=== PATIENT | female | born 1980 | race Caucasian/White ===

== ENCOUNTER 2018-09-14 15:39 | Emergency (ER) | payer BC, MEDICAID ==
[2018-09-14 15:47] VITALS: O2SAT 98
--- NOTE | 2018-09-14 15:51 | ERPHSYRPT ---
- History of Present Illness Time Seen by Provider: 09/14/18 15:50 Source: patient Exam Limitations: no limitations Patient Subjective Stated Complaint: PT states "I was in the bathroom and I tripped over my daughters baby chair. I hit my right elbow and my left hand. I can barely move my left hand." Triage Nursing Assessment: Pt alert and oriented X 3, skin pwd Pt ambulates with an upright steady gait, able to speak in celar full sentences. Pt left hand slightly swollen, right elbow swollen. Physician History: 38 y/o right handed white female presents with left hand pain after fall. 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 pt also hit her right elbow but not as concerned about that. no head injury. Occurred: just prior to arrival Method of Injury: fell Quality: aching, throbbing Severity of Pain-Max: moderate Severity of Pain-Current: mild Extremities Pain Location: hand: left Modifying Factors: Improves With: movement (worsens) Associated Symptoms: none Allergies/Adverse Reactions: cefaclor [From Ceclor] Allergy (Verified 09/14/18 15:47) Hives shrimp Allergy (Verified 09/14/18 15:47) Swelling Home Medications: Metformin HCl [Glucophage Xr] 500 mg PO BID 09/14/18 [History] Sertraline HCl [Zoloft] 100 mg PO DAILY 09/14/18 [History] Hx Tetanus, Diphtheria Vaccination/Date Given: Yes Hx Influenza Vaccination/Date Given: No Hx Pneumococcal Vaccination/Date Given: No Immunizations Up to Date: Yes - Review of Systems Constitutional: No Symptoms Eyes: No Symptoms Ears, Nose, & Throat: No Symptoms Respiratory: No Symptoms Cardiac: No Symptoms Abdominal/Gastrointestinal: No Symptoms Genitourinary Symptoms: No Symptoms Musculoskeletal: Fall (right hand pain) Skin: No Symptoms Neurological: No Symptoms Psychological: No Symptoms Endocrine: No Symptoms Hematologic/Lymphatic: No Symptoms Immunological/Allergic: No Symptoms All Other Systems: Reviewed and Negative - Past Medical History Pertinent Past Medical History: Yes Neurological History: Migraines ENT History: No Pertinent History Cardiac History: No Pertinent History Respiratory History: Asthma, Bronchitis Endocrine Medical History: Diabetes Type II Musculoskeletal History: No Pertinent History GI Medical History: GERD History: No Pertinent History Psycho-Social History: Anxiety Female Reproductive Disorders: No Pertinent History - Past Surgical History Past Surgical History: Yes Other Surgical History: gums - Social History Smoking Status: Never smoker Exposure to second hand smoke: No Drug Use: none Patient Lives Alone: No - Female History Hx Last Menstrual Period: breast feeding Hx Now: No - Nursing Vital Signs Nursing Vital Signs: Initial Vital Signs Temperature 97.8 F 09/14/18 15:40 Pulse Rate 76 09/14/18 15:40 Respiratory Rate 16 09/14/18 15:40 Blood Pressure 140/82 09/14/18 15:40 O2 Sat by Pulse Oximetry 98 09/14/18 15:40 Pain Scale Pain Intensity 4 - Physical Exam General Appearance: no apparent distress, alert, anxiety Eyes, Ears, Nose, Throat Exam: normal ENT inspection, moist mucous membranes Neck Exam: normal inspection, non-tender, supple, full range of motion Cardiovascular/Respiratory Exam: chest non-tender, normal breath sounds, regular rate/rhythm, heart sounds normal Abdominal Exam: non-tender, soft Back Exam: normal inspection, normal range of motion, No CVA tenderness, No vertebral tenderness Shoulder Exam: normal inspection, non-tender Elbow/Forearm Exam: normal ROM, soft tissue tenderness, swelling (right elbow with mild swelling no deformity and has full rom) Wrist Exam: normal inspection, non-tender, no evidence of injury, normal ROM Hand Exam: normal inspection, no evidence of injury, normal ROM, bone tenderness (left thenar eminence), soft tissue tenderness Neuro/Tendon Exam: normal sensation, normal motor functions, normal tendon functions Mental Status Exam: alert, oriented x 3, cooperative Skin Exam: normal color, warm, dry SpO2 Interpretation: normal SpO2: 98 O2 Delivery: Room Air Ordered Tests: Active Orders 24 hr Category Date Time Status HAND (MINIMUM 3 VIEWS) Stat Exams 09/14/18 15:51 Taken - Progress Progress: unchanged Progress Note: 09/14/18 17:00 left hand xray-no acute fx or dislocation 09/14/18 17:00 pt is and she does not want any narcotics Counseled pt/family regarding: diagnosis, need for follow-up, rad results - Departure Departure Disposition: Home Clinical Impression: Contusion of hand, left Condition: Stable Critical Care Time: No Referrals: ENEDINA MARCOS [Primary Care Provider] - Additional Instructions: left hand ice bath 3 times daily for 3 days. use tylenol for pain. follow up with primary doctor for persistent pain.
[2018-09-14 18:01] VITALS: BP 136/84; PULSE 86
--- NOTE | 2018-09-14 21:41 | XRAY ---
Indication: Pain following fall. Comparison: None 3 views of the left hand demonstrate normal bones, articulation, and soft tissues. Comment: Preliminary interpretation was made by [facility]. No discrepancy.
== END 2018-09-14 18:08 | disposition home or self-care (01) ==
LOC: ED 15:39
DX: W01.198A Fall on same level from slipping, tripping and stumbling with subsequent striking against other object, initial encounter (principal); Y92.002 Bathroom of unspecified non-institutional (private) residence as the place of occurrence of the external cause; M79.642 Pain in left hand; M79.89 Other specified soft tissue disorders
CPT/HCPCS: 73130; 99283

== ENCOUNTER 2020-08-12 07:41 | Emergency (ER) | payer BC ==
--- NOTE | 2020-08-12 07:56 | ERPHSYRPT ---
- History of Present Illness Time Seen by Provider: 08/12/20 07:50 Source: patient Exam Limitations: no limitations Physician History: This is a 40-year-old white female who has a history of migraine headaches and presents with acute onset of atypical migraine headache that occurred this morning and has associated left-sided facial numbness. Patient has a history of [id number] diabetes. Patient denies any head trauma. Patient states that her headache is severe and global in location. Timing/Duration: today Quality: aching, throbbing Head Pain Location: global Severity of Pain-Max: moderate Severity of Pain-Current: moderate Recent Head Trauma: no recent headache/trauma, occasional headaches Associated Symptoms: nausea/vomiting, other (Left facial numbness), No fever/chills, No seizures, No stiff neck, No vision changes, No visual disturbance Previous symptoms: no prior history Allergies/Adverse Reactions: cefaclor [From Ceclor] Allergy (Verified 08/12/20 07:45) Hives shrimp Allergy (Verified 08/12/20 07:45) Swelling Home Medications: Metformin HCl [Glucophage Xr] 1,000 mg PO BID 09/14/18 [History] Sertraline HCl [Zoloft] 150 mg PO DAILY 09/14/18 [History] Hx Tetanus, Diphtheria Vaccination/Date Given: Yes Hx Influenza Vaccination/Date Given: No Hx Pneumococcal Vaccination/Date Given: No Travel Risk - International Travel Have you traveled outside of the country in past 3 weeks: No - Coronavirus Screening Are you exhibiting any of the following symptoms?: No Close contact with a COVID-19 positive Pt in past 14-21 Days: No - Review of Systems Constitutional: No Symptoms Eyes: No Symptoms Ears, Nose, & Throat: No Symptoms Respiratory: No Symptoms Cardiac: No Symptoms Abdominal/Gastrointestinal: No Symptoms Genitourinary Symptoms: No Symptoms Musculoskeletal: No Symptoms Skin: No Symptoms Neurological: Headache, Parasthesia (Face left side) Psychological: No Symptoms Endocrine: No Symptoms Hematologic/Lymphatic: No Symptoms Immunological/Allergic: No Symptoms All Other Systems: Reviewed and Negative - Past Medical History Pertinent Past Medical History: Yes Neurological History: Migraines ENT History: No Pertinent History Cardiac History: No Pertinent History Respiratory History: Asthma, Bronchitis Endocrine Medical History: Diabetes Type II Musculoskeletal History: No Pertinent History GI Medical History: GERD History: No Pertinent History Psycho-Social History: Anxiety Female Reproductive Disorders: No Pertinent History - Past Surgical History Past Surgical History: Yes Other Surgical History: gums - Social History Smoking Status: Never smoker Exposure to second hand smoke: No Drug Use: none Patient Lives Alone: No - Nursing Vital Signs Nursing Vital Signs: Initial Vital Signs Temperature 98.0 F 08/12/20 07:48 Pulse Rate 99 H 08/12/20 07:48 Respiratory Rate 18 08/12/20 07:48 Blood Pressure 180/114 08/12/20 07:48 O2 Sat by Pulse Oximetry 96 08/12/20 07:48 Pain Scale Pain Intensity 5 - Physical Exam General Appearance: mild distress, alert, anxiety Eye Exam: PERRL/EOMI, eyes nml inspection Ears, Nose, Throat Exam: normal ENT inspection, moist mucous membranes Neck Exam: normal inspection, non-tender, supple, full range of motion Respiratory Exam: normal breath sounds, lungs clear, airway intact, No chest tenderness, No respiratory distress Cardiovascular Exam: regular rate/rhythm, normal heart sounds, normal peripheral pulses Gastrointestinal/Abdominal Exam: soft, normal bowel sounds, No tenderness Back Exam: normal inspection, normal range of motion, No CVA tenderness, No vertebral tenderness Extremity Exam: normal inspection, normal range of motion, pelvis stable Mental Status Exam: alert, 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 3, 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: normal hearing, normal speech, PERRL, tongue midline Coordination/Gait Exam: normal finger to nose, normal gait, normal cerebellar function Motor/Sensory Exam: no motor deficit, no sensory deficit Skin Exam: normal color, warm, dry Lymphatic Exam: No adenopathy O2 Delivery: Room Air - Course Nursing assessment & vital signs reviewed: Yes Ordered Tests: Active Orders 24 hr Category Date Time Status IV Insertion STAT Care 08/12/20 07:56 Active HEAD WITHOUT CONTRAST [CT] Stat Exams 08/12/20 07:57 Completed Medication Summary Discontinued Medications Generic Name Dose Route Start Last Admin Trade Name Freq PRN Reason Stop Dose Admin Dexamethasone Sodium Phosphate 10 mg 08/12/20 09:10 08/12/20 09:24 Decadron 4 Mg Inj IV 08/12/20 09:11 10 mg STAT ONE Administration Dexamethasone Sodium Phosphate Confirm 08/12/20 09:22 Decadron 4 Mg Inj Administered 08/12/20 09:23 Dose 12 mg .ROUTE .STK-MED ONE Diphenhydramine HCl 25 mg 08/12/20 09:07 08/12/20 09:25 Benadryl 50 Mg/Ml IV 08/12/20 09:08 25 mg STAT ONE Administration Diphenhydramine HCl Confirm 08/12/20 09:22 Benadryl 50 Mg/Ml Administered 08/12/20 09:23 Dose 50 mg .ROUTE .STK-MED ONE Hydromorphone HCl 1 mg 08/12/20 07:57 08/12/20 08:02 Hydromorphone 1 Mg/Ml Injection IV 08/12/20 07:58 1 mg STAT ONE Administration Hydromorphone HCl Confirm 08/12/20 08:00 Hydromorphone 1 Mg/Ml Injection Administered 08/12/20 08:01 Dose 1 mg .ROUTE .STK-MED ONE Sodium Chloride 1,000 mls @ 999 mls/hr 08/12/20 09:07 08/12/20 09:24 Sodium Chloride 0.9% 1000 Ml IV 08/12/20 10:07 999 mls/hr .Q1H1M STA Administration Sodium Chloride Confirm 08/12/20 09:22 Sodium Chloride 0.9% 1000 Ml Administered 08/12/20 09:23 Dose 1,000 mls @ ud .ROUTE .STK-MED ONE Ketorolac Tromethamine 30 mg 08/12/20 09:07 08/12/20 09:24 Toradol 30 Mg Injection IV 08/12/20 09:08 30 mg STAT ONE Administration Ketorolac Tromethamine Confirm 08/12/20 09:22 Toradol 30 Mg Injection Administered 08/12/20 09:23 Dose 30 mg .ROUTE .STK-MED ONE Ondansetron HCl 4 mg 08/12/20 07:57 08/12/20 08:02 Zofran 4 Mg/2 Ml Vial IV 08/12/20 07:58 4 mg STAT ONE Administration Ondansetron HCl Confirm 08/12/20 08:00 Zofran 4 Mg/2 Ml Vial Administered 08/12/20 08:01 Dose 4 mg .ROUTE .STK-MED ONE - Progress Progress: improved, re-examined Air Movement: good Progress Note: 08/12/20 09:[address] scan of the head 08/12/20 10:23 Medical decision making: This patient was sleeping upon reexamination. Her vital signs have improved. Patient states her headache is resolving nicely. She has no facial numbness and she has no nausea. We will discharge her to home. Blood Culture(s) Obtained: No Antibiotics given: No Counseled pt/family regarding: diagnosis, need for follow-up, rad results - Departure Departure Disposition: Home Clinical Impression: Migraine headache Condition: Stable Critical Care Time: No Referrals: MARIELA BARTHOLOMEW [Primary Care Provider] - Additional Instructions: Drink plenty of fluids. Take your medication as prescribed. Follow-up with a neurologist for further management. Return to the emergency department if symptoms return.
[2020-08-12] MEDS ORDERED: Hydromorphone 1 mg/ml Injection IV ONE (07:57)
[2020-08-12] MEDS ORDERED: Zofran 4 MG/2 ML VIAL IV ONE (07:57)
[2020-08-12] MEDS ORDERED: Zofran 4 MG/2 ML VIAL ONE (08:00)
[2020-08-12] MEDS ORDERED: Hydromorphone 1 mg/ml Injection ONE (08:00)
--- NOTE | 2020-08-12 09:03 | XRAY ---
Indication: Headache. History of migraines. Multiple contiguous images obtained through the head without contrast. Comparison: None Normal appearing brain parenchyma, ventricles, and bony calvarium. Minimal mucosal thickening inferior maxillary sinuses bilaterally. Remaining visualized paranasal sinuses and mastoid air cells are clear. Impression: Minimal paranasal sinus disease. Remaining CT head without contrast exam is normal.
[2020-08-12] MEDS ORDERED: BENADRYL 50 MG/ML IV ONE (09:07)
[2020-08-12] MEDS ORDERED: Sodium Chloride 0.9% 1000 ML 1,000 ML IV STA (09:07)
[2020-08-12] MEDS ORDERED: TORAdol 30 mg Injection IV ONE (09:07)
[2020-08-12] MEDS ORDERED: Decadron 4 MG INJ IV ONE (09:10)
[2020-08-12] MEDS ORDERED: TORAdol 30 mg Injection ONE (09:22)
[2020-08-12] MEDS ORDERED: Decadron 4 MG INJ ONE (09:22)
[2020-08-12] MEDS ORDERED: BENADRYL 50 MG/ML ONE (09:22)
[2020-08-12] MEDS ORDERED: Sodium Chloride 0.9% 1000 ML 1,000 ML ONE (09:22)
[2020-08-12 10:36] VITALS: BP 158/98; PULSE 80; O2SAT 95
== END 2020-08-12 10:40 | disposition home or self-care (01) ==
LOC: ED 07:41
DX: G43.909 Migraine, unspecified, not intractable, without status migrainosus (principal); R11.2 Nausea with vomiting, unspecified; E11.9 Type 2 diabetes mellitus without complications; Z79.84 Long term (current) use of oral hypoglycemic drugs; Z79.899 Other long term (current) drug therapy
CPT/HCPCS: 36000; 70450; 96374; 96375; 99284; J1100; J1170; J1200; J1885; J2405

== ENCOUNTER 2020-08-26 17:24 | Observation (INO) | payer BC ==
[2020-08-26] MEDS ORDERED: BENADRYL 50 MG/ML IV ONE (17:48)
[2020-08-26] MEDS ORDERED: BABY ASPIRIN 81 MG CHEW PO ONE (17:48)
[2020-08-26] MEDS ORDERED: Sodium Chloride 0.9% 1000 ML 1,000 ML IV STA (17:48)
[2020-08-26] MEDS ORDERED: TORAdol 30 mg Injection IV ONE (17:50)
[2020-08-26] MEDS ORDERED: TYLENOL EXTRA STRENGTH 500 MG PO STA (17:51)
[2020-08-26] MEDS ORDERED: BABY ASPIRIN 81 MG CHEW ONE (18:04)
[2020-08-26] MEDS ORDERED: BENADRYL 50 MG/ML ONE (18:04)
[2020-08-26] MEDS ORDERED: TORAdol 30 mg Injection ONE (18:04)
[2020-08-26] MEDS ORDERED: TYLENOL EXTRA STRENGTH 500 MG ONE (18:04)
[2020-08-26] MEDS ORDERED: Sodium Chloride 0.9% 1000 ML 1,000 ML ONE (18:05)
[2020-08-26 18:26] LABS: Absolute Neutrophil Ct (ANC) 7.84 (1.4-6.9); BASOPHIL % 0.2 % (0.0-0.4); Basophil (Absolute #) 0.02 (0-0.4); Eosinophil % 1.2 % (0.00-5.0); Eosinophil (Absolute #) 0.12 (0-0.5); Hematocrit 39.9 % (35-47); Hemoglobin 12.9 gm/dl (12.0-16.0); Lymphocyte (Absolute #) 1.65 (1.0-4.6); Mean Cell Volume 88.1 fl (78-100); Mean Corpuscular Hemoglobin 28.5 pg (26-32); Mean Corpuscular Hgb Concent. 32.3 g/dl (32-36); Monocyte (Absolute #) 0.66 (0.0-1.3); Monocytes % 6.4 % (0.0-12.0); Neutrophil % 76.2 % (36.0-66.0); Platelet Count 263 K/mm3 (150-450); Red Blood Count 4.53 M/mm3 (4.1-5.4); Red Cell Distribution Width 14.4 % (11.5-14.0); White Blood Count 10.3 K/mm3 (4.0-10.5)
[2020-08-26 18:29] LABS: Appearance CLEAR (CLEAR); Bilirubin NEGATIVE (NEGATIVE); Blood NEGATIVE Ery/ul (0-5); Glucose >=500 mg/dL (NEGATIVE); Ketones TRACE (NEGATIVE); Leukocyte Esterase NEGATIVE (NEGATIVE); Mucus SLIGHT /HPF (NEGATIVE); Nitrite NEGATIVE (NEGATIVE); Protein,Urine Dip NEGATIVE (Negative); Specific Gravity 1.018 (1.005-1.025); Urobilinogen NEGATIVE mg/dL (0-1)
[2020-08-26 18:46] LABS: BLOOD UREA NITROGEN 16 mg/dL (7-17); Creatinine 1 0.75 mg/dL (0.52-1.04); EST GLOMERULAR FILTRATION RATE > 60.0 ML/MIN
--- NOTE | 2020-08-26 18:50 | ERPHSYRPT ---
- History of Present Illness Time Seen by Provider: 08/26/20 17:33 Source: patient Exam Limitations: no limitations Patient Subjective Stated Complaint: HTN Triage Nursing Assessment: Patient ambulated back to ED and transferred self to bed. Patient A+O X3. Patient's skin flushed, warm and dry. Patient states 1530 she became nauseated and had diarrhea and became very hot and she stated she felt "weird". Patient states her sister law took her b/p and it was 150/110. Patient states she is having constant aching pain 2/10 to left side of head. Patient states the left side of her body feels numb and weak. Physician History: Patient is here with left-sided headache. Patient was having some left-sided facial numbness and left arm numbness. She states that this started earlier today. Having some nausea with it. Patient also is hypertensive. This is new. Patient typically does not have hypertension. Patient states that she was seen here for similar symptoms a few weeks ago. At that point time she did have a negative head CT. I did review that provider's note. Location: head Quality: sharp, Radiation: none Severity: moderate Duration: today Timing: gradual Modifying factors/associated signs and symptoms: home OTC medication Timing/Duration: today Severity: moderate Modifying Factors: Improves With: rest Associated Symptoms: nausea Allergies/Adverse Reactions: cefaclor [From Ceclor] Allergy (Verified 08/26/20 17:30) Hives shrimp Allergy (Verified 08/26/20 17:30) Swelling Home Medications: Metformin HCl [Glucophage Xr] 1,000 mg PO BID 09/14/18 [History] Sertraline HCl [Zoloft] 150 mg PO DAILY 09/14/18 [History] Hx Tetanus, Diphtheria Vaccination/Date Given: Yes Hx Influenza Vaccination/Date Given: No Hx Pneumococcal Vaccination/Date Given: No Immunizations Up to Date: Yes Travel Risk - International Travel Have you traveled outside of the country in past 3 weeks: No - Coronavirus Screening Are you exhibiting any of the following symptoms?: No Close contact with a COVID-19 positive Pt in past 14-21 Days: No - Vaccine Status Have you recieved a Covid-19 vaccination: No - Review of Systems Constitutional: No Fever, No Chills Eyes: No Symptoms Ears, Nose, & Throat: No Symptoms Respiratory: No Cough, No Dyspnea Cardiac: No Chest Pain, No Edema, No Syncope Abdominal/Gastrointestinal: No Abdominal Pain, No Nausea, No Vomiting, No Diarrhea Genitourinary Symptoms: No Dysuria Musculoskeletal: No Back Pain, No Neck Pain Skin: No Rash Neurological: Sensory Changes, Other (Headache with left-sided numbness), No Dizziness, No Focal Weakness Psychological: No Symptoms Endocrine: No Symptoms All Other Systems: Reviewed and Negative - Past Medical History Pertinent Past Medical History: Yes Neurological History: Migraines ENT History: No Pertinent History Cardiac History: No Pertinent History Respiratory History: Asthma, Bronchitis Endocrine Medical History: Diabetes Type II Musculoskeletal History: No Pertinent History GI Medical History: GERD History: No Pertinent History Psycho-Social History: Anxiety Female Reproductive Disorders: No Pertinent History - Past Surgical History Past Surgical History: Yes Other Surgical History: gums - Social History Smoking Status: Never smoker Exposure to second hand smoke: No Drug Use: none Patient Lives Alone: No - Female History Hx Now: No - Nursing Vital Signs Nursing Vital Signs: Initial Vital Signs Temperature 97.9 F 08/26/20 17:32 Pulse Rate 107 H 08/26/20 17:32 Respiratory Rate 18 08/26/20 17:32 Blood Pressure 177/120 08/26/20 17:32 O2 Sat by Pulse Oximetry 100 08/26/20 17:32 Pain Scale Pain Intensity 2 - Physical Exam General Appearance: no apparent distress, alert Eye Exam: PERRL/EOMI, eyes nml inspection Ears, Nose, Throat Exam: normal ENT inspection, TMs normal, pharynx normal, moist mucous membranes Neck Exam: normal inspection, non-tender, supple, full range of motion Respiratory Exam: normal breath sounds, lungs clear, No respiratory distress Cardiovascular Exam: regular rate/rhythm, normal heart sounds, normal peripheral pulses Gastrointestinal/Abdomen Exam: soft, normal bowel sounds, No tenderness, No mass Back Exam: normal inspection, normal range of motion, No CVA tenderness, No vertebral tenderness Extremity Exam: normal inspection, normal range of motion, pelvis stable Neurologic Exam: alert, oriented x 3, cooperative, normal mood/affect, nml cerebellar function, nml station & gait, sensation nml, No motor deficits Skin Exam: normal color, warm, dry, No rash Lymphatic Exam: No adenopathy SpO2 Interpretation: normal SpO2: 100 - Course Nursing assessment & vital signs reviewed: Yes EKG Interpreted by Me: Sinus Rhythm Ordered Tests: Active Orders 24 hr Category Date Time 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 STAT Care 08/26/20 17:49 Active EKG-ER Only STAT Care 08/26/20 17:48 Active IV Insertion STAT Care 08/26/20 17:48 Active CHEST 2 VIEWS (PA AND LAT) Stat Exams 08/26/20 17:49 Taken CBC W DIFF Stat Lab 08/26/20 18:00 Completed CMP Stat Lab 08/26/20 18:00 Completed HCG QUALITATIVE,SERUM Stat Lab 08/26/20 18:00 Completed Hepatic Function Panel Stat Lab 08/26/20 18:00 Completed NT PRO BNP Stat Lab 08/26/20 18:00 Completed PROTIME WITH INR Stat Lab 08/26/20 18:00 Completed PTT Stat Lab 08/26/20 18:00 Completed TROPONIN Q3H Lab 08/26/20 18:00 Received TROPONIN Q3H Lab 08/26/20 21:00 Ordered TROPONIN Q3H Lab 08/27/20 00:00 Ordered TROPONIN Q3H Lab 08/27/20 03:00 Ordered TROPONIN Q3H Lab 08/27/20 06:00 Ordered UA W/RFX UR CULTURE Stat Lab 08/26/20 18:00 Completed Medication Summary Discontinued Medications Generic Name Dose Route Start Last Admin Trade Name Freq PRN Reason Stop Dose Admin Acetaminophen 1,000 mg 08/26/20 17:51 08/26/20 18:06 Tylenol Extra Strength 500 Mg PO 08/26/20 17:52 1,000 mg STAT STA Administration Acetaminophen Confirm 08/26/20 18:04 Tylenol Extra Strength 500 Mg Administered 08/26/20 18:05 Dose 1,000 mg .ROUTE .STK-MED ONE Aspirin 324 mg 08/26/20 17:48 08/26/20 18:07 Baby Aspirin 81 Mg Chew PO 08/26/20 17:49 324 mg STAT ONE Administration Aspirin Confirm 08/26/20 18:04 Baby Aspirin 81 Mg Chew Administered 08/26/20 18:05 Dose 324 mg .ROUTE .STK-MED ONE Diphenhydramine HCl 25 mg 08/26/20 17:48 08/26/20 18:11 Benadryl 50 Mg/Ml IV 08/26/20 17:49 25 mg STAT ONE Administration Diphenhydramine HCl Confirm 08/26/20 18:04 Benadryl 50 Mg/Ml Administered 08/26/20 18:05 Dose 50 mg .ROUTE .STK-MED ONE Sodium Chloride 1,000 mls @ 999 mls/hr 08/26/20 17:48 08/26/20 19:15 Sodium Chloride 0.9% 1000 Ml IV 08/26/20 18:48 Infused .Q1H1M STA Infusion Sodium Chloride Confirm 08/26/20 18:05 Sodium Chloride 0.9% 1000 Ml Administered 08/26/20 18:06 Dose 1,000 mls @ ud .ROUTE .STK-MED ONE Ketorolac Tromethamine 30 mg 08/26/20 17:50 08/26/20 18:09 Toradol 30 Mg Injection IV 08/26/20 17:51 30 mg STAT ONE Administration Ketorolac Tromethamine Confirm 08/26/20 18:04 Toradol 30 Mg Injection Administered 08/26/20 18:05 Dose 30 mg .ROUTE .STK-MED ONE Lab/Rad Data: Laboratory Result Diagrams 08/26/20 18:00 08/26/20 18:00 Laboratory Results 08/26/20 08/26/20 08/26/20 Range/Units 18:00 18:00 18:00 WBC (4.0-10.5) K/mm3 RBC (4.1-5.4) M/mm3 Hgb (12.0-16.0) gm/dl Hct (35-47) % MCV (78-100) fl MCH (26-32) pg MCHC (32-36) g/dl RDW (11.5-14.0) % Plt Count (150-450) K/mm3 MPV (7.5-11.0) fl Gran % (36.0-66.0) % Eos # (Auto) (0-0.5) Absolute Lymphs (auto) (1.0-4.6) Absolute Monos (auto) (0.0-1.3) Lymphocytes % (24.0-44.0) % Monocytes % (0.0-12.0) % Eosinophils % (0.00-5.0) % Basophils % (0.0-0.4) % Absolute Granulocytes (1.4-6.9) Basophils # (0-0.4) PT 11.5 (9.95-12.35) SECONDS INR 1.02 (0.8-3.0) APTT 29.6 (25.3-37.0) SECONDS Sodium (137-145) mmol/L Potassium (3.5-5.1) mmol/L Chloride (98-107) mmol/L Carbon Dioxide (22-30) mmol/L Anion Gap (5-15) MEQ/L BUN (7-17) mg/dL Creatinine (0.52-1.04) mg/dL Estimated GFR ML/MIN Glucose (74-106) mg/dL Calcium (8.4-10.2) mg/dL Total Bilirubin (0.2-1.3) mg/dL Direct Bilirubin (0.0-0.4) mg/dL AST (14-36) U/L ALT (0-35) U/L Alkaline Phosphatase (38-126) U/L NT-Pro-B Natriuret Pep (0-450) pg/mL Serum Total Protein (6.3-8.2) g/dL Albumin (3.5-5.0) g/dL Serum , Qual NEGATIVE (Negative) Urine Color YELLOW (YELLOW) Urine Appearance CLEAR (CLEAR) Urine pH 5.0 (5-6) Ur Specific [place] 1.018 (1.005-1.025) Urine Protein NEGATIVE (Negative) Urine Ketones TRACE (NEGATIVE) Urine Blood NEGATIVE (0-5) Herminio/ul Urine Nitrite NEGATIVE (NEGATIVE) Urine Bilirubin NEGATIVE (NEGATIVE) Urine Urobilinogen NEGATIVE (0-1) mg/dL Ur Leukocyte Esterase NEGATIVE (NEGATIVE) Urine WBC (Auto) NONE (0-5) /HPF Urine RBC (Auto) NONE (0-2) /HPF U Epithel Cells (Auto) NONE (FEW) /HPF Urine Bacteria (Auto) NONE (NEGATIVE) /HPF Urine Mucus (Auto) SLIGHT (NEGATIVE) /HPF Urine Culture Reflexed NO (NO) Urine Glucose >=500 (NEGATIVE) mg/dL 08/26/20 08/26/20 Range/Units 18:00 18:00 WBC 10.3 (4.0-10.5) K/mm3 RBC 4.53 (4.1-5.4) M/mm3 Hgb 12.9 (12.0-16.0) gm/dl Hct 39.9 (35-47) % MCV 88.1 (78-100) fl MCH 28.5 (26-32) pg MCHC 32.3 (32-36) g/dl RDW 14.4 H (11.5-14.0) % Plt Count 263 (150-450) K/mm3 MPV 10.0 (7.5-11.0) fl Gran % 76.2 H (36.0-66.0) % Eos # (Auto) 0.12 (0-0.5) Absolute Lymphs (auto) 1.65 (1.0-4.6) Absolute Monos (auto) 0.66 (0.0-1.3) Lymphocytes % 16.0 L (24.0-44.0) % Monocytes % 6.4 (0.0-12.0) % Eosinophils % 1.2 (0.00-5.0) % Basophils % 0.2 (0.0-0.4) % Absolute Granulocytes 7.84 H (1.4-6.9) Basophils # 0.02 (0-0.4) PT (9.95-12.35) SECONDS INR (0.8-3.0) APTT (25.3-37.0) SECONDS Sodium 137 (137-145) mmol/L Potassium 4.0 (3.5-5.1) mmol/L Chloride 100 (98-107) mmol/L Carbon Dioxide 23 (22-30) mmol/L Anion Gap 17.9 H (5-15) MEQ/L BUN 16 (7-17) mg/dL Creatinine 0.75 (0.52-1.04) mg/dL Estimated GFR > 60.0 ML/MIN Glucose 253 H (74-106) mg/dL Calcium 9.9 (8.4-10.2) mg/dL Total Bilirubin 0.30 (0.2-1.3) mg/dL Direct Bilirubin 0.1 (0.0-0.4) mg/dL AST 27 (14-36) U/L ALT 27 (0-35) U/L Alkaline Phosphatase 57 (38-126) U/L NT-Pro-B Natriuret Pep 58.6 (0-450) pg/mL Serum Total Protein 8.0 (6.3-8.2) g/dL Albumin 4.8 (3.5-5.0) g/dL Serum , Qual (Negative) Urine Color (YELLOW) Urine Appearance (CLEAR) Urine pH (5-6) Ur Specific [place] (1.005-1.025) Urine Protein (Negative) Urine Ketones (NEGATIVE) Urine Blood (0-5) Herminio/ul Urine Nitrite (NEGATIVE) Urine Bilirubin (NEGATIVE) Urine Urobilinogen (0-1) mg/dL Ur Leukocyte Esterase (NEGATIVE) Urine WBC (Auto) (0-5) /HPF Urine RBC (Auto) (0-2) /HPF U Epithel Cells (Auto) (FEW) /HPF Urine Bacteria (Auto) (NEGATIVE) /HPF Urine Mucus (Auto) (NEGATIVE) /HPF Urine Culture Reflexed (NO) Urine Glucose (NEGATIVE) mg/dL - Progress Progress: improved Progress Note: 08/26/20 18:50 We'll treat with a migraine cocktail. Possible hypertensive urgency. Will hold off on blood pressure medication at this point in time. We'll see if the migraine cocktail works. Will obtain basic labs, fluids. Also concern for potential other neurological issue. Patient could benefit from an MRI. We do not have MRI at this time of night. Patient recently did have a head CT. This was negative. I did review the findings. Therefore, we'll hold off on a head CT at this point in time. 08/26/20 19:19 I did discuss with Dr. Lay over the phone tonight. She did recommend admission. Patient's blood pressure improved with only migraine cocktail here. Continue close inpatient monitoring of blood pressure. Patient most likely will need MRI tomorrow. We will leave that up to Dr. Williamson. After reviewing labs, appropriate imaging, discussion with patient and family. We decided the patient should be admitted to the hospital. I called the inpatient team discussed history, physical and results with them in detail. We decided on the plan of action and admission to [facility]. We agreed on appropriate consults and who would call them. - Departure Departure Disposition: Observation Clinical Impression: Hypertension, Atypical migraine Condition: Stable Critical Care Time: No Referrals: MARIELA WILLIAMSON [Primary Care Provider] -
[2020-08-26 18:53] LABS: ALBUMIN 4.8 g/dL (3.5-5.0); ALKALINE PHOSPHATASE 57 U/L (38-126); ANION GAP 17.9 MEQ/L (5-15); CHLORIDE 100 mmol/L (98-107); Calcium 9.9 mg/dL (8.4-10.2); Carbon Dioxide 23 mmol/L (22-30); Glucose 253 mg/dL (74-106); NT PRO BNP 58.6 pg/mL (0-450); SGOT/AST 27 U/L (14-36); SGPT/ALT 27 U/L (0-35); SODIUM 137 mmol/L (137-145)
[2020-08-26 18:55] LABS: Direct Bilirubin 0.1 mg/dL (0.0-0.4)
[2020-08-26 18:56] LABS: INR 1.02 (0.8-3.0); PROTIME 11.5 SECONDS (9.95-12.35)
[2020-08-26 18:59] LABS: PTT 29.6 SECONDS (25.3-37.0)
[2020-08-26] MEDS ORDERED: Zofran 4 MG/2 ML VIAL IV PRN (19:22)
[2020-08-26] MEDS ORDERED: TORAdol 30 mg Injection IV PRN (19:22)
[2020-08-26 20:23] LABS: INFLUENZA A NEGATIVE (NEGATIVE); INFLUENZA B NEGATIVE (NEGATIVE); RESPIRATORY SYNCTIAL VIRUS NEGATIVE (Negative)
[2020-08-27 03:49] LABS: Absolute Neutrophil Ct (ANC) 5.33 (1.4-6.9); BASOPHIL % 0.1 % (0.0-0.4); Basophil (Absolute #) 0.01 (0-0.4); Eosinophil % 1.8 % (0.00-5.0); Eosinophil (Absolute #) 0.16 (0-0.5); Hematocrit 37.7 % (35-47); Hemoglobin 11.9 gm/dl (12.0-16.0); Lymphocyte (Absolute #) 2.83 (1.0-4.6); Lymphocytes % 31.3 % (24.0-44.0); Mean Cell Volume 89.3 fl (78-100); Mean Corpuscular Hemoglobin 28.2 pg (26-32); Mean Corpuscular Hgb Concent. 31.6 g/dl (32-36); Mean Platelet Volume 9.9 fl (7.5-11.0); Monocyte (Absolute #) 0.72 (0.0-1.3); Neutrophil % 58.8 % (36.0-66.0); Platelet Count 240 K/mm3 (150-450); Red Blood Count 4.22 M/mm3 (4.1-5.4); Red Cell Distribution Width 14.2 % (11.5-14.0); White Blood Count 9.1 K/mm3 (4.0-10.5)
[2020-08-27 03:55] LABS: ANION GAP 13.2 MEQ/L (5-15); BLOOD UREA NITROGEN 16 mg/dL (7-17); CHLORIDE 103 mmol/L (98-107); Calcium 9.3 mg/dL (8.4-10.2); Carbon Dioxide 27 mmol/L (22-30); Creatinine 1 0.82 mg/dL (0.52-1.04); EST GLOMERULAR FILTRATION RATE > 60.0 ML/MIN; Glucose 171 mg/dL (74-106); Potassium 4.1 mmol/L (3.5-5.1); SODIUM 139 mmol/L (137-145)
[2020-08-27 04:42] VITALS: O2SAT 96
--- NOTE | 2020-08-27 08:48 | XRAY ---
Indication: Hypertension urgency. Comparison: None PA/lateral chest demonstrates normal heart and lungs. Bony thorax intact with minimal degenerative changes.
[2020-08-27] MEDS ORDERED: [UNRECOGNIZED DRUG - OTHER] PO PRN (10:43)
[2020-08-27] MEDS ORDERED: CAFFEINE PO PRN (10:43)
[2020-08-27] MEDS ORDERED: BUTALB PO PRN (10:43)
[2020-08-27] MEDS ORDERED: ACETAMINOPHEN PO PRN (10:43)
[2020-08-27] MEDS ORDERED: MEDICATION INTERVENTION MC PRN (10:55)
[2020-08-27] MEDS ORDERED: ZOLOFT 50 MG TABLET PO SCH (11:00)
[2020-08-27] MEDS ORDERED: Glucophage 500 MG PO SCH ×2 (11:00→22:00)
--- NOTE | 2020-08-27 11:17 | XRAY ---
Indication: Migraine headaches. Two-dimensional sonogram and color Doppler imaging of the carotid arteries of the neck performed. Comparison: None Examination of the right carotid circulation demonstrates widely patent common carotid, carotid bulb, internal carotid, and external carotid arteries. PSV of the CCA is 91 cm/s. PSV of the ICA is 108 cm/s. ICA/CCA ratio is 1.2. Normal antegrade vertebral flow. Examination of the left carotid circulation demonstrates widely patent common carotid, carotid bulb, internal carotid, and external carotid arteries. PSV of the CCA is 100 cm/s. PSV of the ICA is 93 cm/s. ICA/CCA ratio is 0.9. Normal antegrade vertebral artery flow. Impression: Widely patent carotid arteries of the neck. Velocity measurements and ratios are also negative for hemodynamically significant flow-limiting stenosis.
--- NOTE | 2020-08-27 12:10 | XRAY ---
Indication: Right-sided numbness. Nausea and vomiting. Migraine. Sagittal, coronal, and axial MRI brain was performed without contrast using T1, T2, FLAIR, diffusion, and ADC sequences. Comparison: None Ventriculosulcal pattern appears symmetric. No acute intracranial hemorrhage, abnormal extra-axial fluid collection, or mass effect. Diffusion images are negative for restricted signal. Fourth ventricle is midline without hydrocephalus. 7/8 cranial nerve complex bilaterally symmetric. Petrous apex of the right temporal bone demonstrates a 6 x 12 mm cystic lesion anterior to the 7/8 cranial nerve complex and a smaller 5 x 6 mm cystic lesion posteriorly. Partial differential offered includes cholesterol granuloma versus cholesteatoma versus fluid in the pneumatized petrous apex. Incidentally the right mastoid air cells demonstrates minimal fluid signal. Fourth ventricle is midline without hydrocephalus. Normal flow void signal within the major intracerebral circulation. Normal-appearing craniocervical junction and sella turcica. Paranasal sinuses are clear. Impression: 1. Tiny cystic lesions involving petrous apex of right temporal bone as detailed. Partial differential offered includes cholesterol granuloma versus cholesteatoma versus fluid in pneumatized petrous apex. Additional minimal fluid seen in the right mastoid air cells. 2. Remaining MRI brain without contrast exam is negative.
--- NOTE | 2020-08-27 12:12 | XRAY ---
Indication: Left-sided numbness, nausea, and vomiting. Migraine. Elevated blood pressure. Multi-slab 3-D [id number] MRA neck was performed without contrast. Comparison: None Visualized aortic arch is normal in course and caliber with normal branching right brachiocephalic, left common carotid, and left subclavian arteries. Normal MRA appearance to the common carotid, carotid bulb, internal carotid, external carotid, and vertebral arteries bilaterally. Impression: Negative MRA neck.
[2020-08-27 12:19] VITALS: BP 170/88; PULSE 98
[2020-08-28] MEDS ORDERED: SERTRALINE HCL 150 MG PO SCH (10:00)
== END 2020-08-27 16:18 | disposition home or self-care (01) ==
LOC: ED 17:24 → MED SURG 21:25
PROVIDERS: ADMIT Family Medicine; ATTEND Family Medicine
DX: G43.109 Migraine with aura, not intractable, without status migrainosus (principal); I16.0 Hypertensive urgency; R11.0 Nausea; R19.7 Diarrhea, unspecified; Z79.899 Other long term (current) drug therapy; E11.9 Type 2 diabetes mellitus without complications
CPT/HCPCS: 0241U; 36000; 36415; 70547; 70551; 71046; 80048; 80053; 80076; 81001; 81025; 82947; 83036; 83880; 84484; 85025; 85610; 85730; 93005; 93041; 93306; 93880; 96360; 96374; 96375; 99285; 93268; J1200; J1885; A9270-GY; G0378

== ENCOUNTER 2025-02-14 17:50 | Emergency (ER) | payer OTHER | END 2025-02-14 19:29 | disposition left against medical advice (07) | LOC: ED 17:50 | DX: Z53.21 Procedure and treatment not carried out due to patient leaving prior to being seen by health care provider (principal) ==

== ENCOUNTER 2025-02-15 20:07 | Emergency (ER) | payer OTHER ==
[2025-02-15] MEDS ORDERED: TORAdol 30 mg Injection ONE (20:27)
[2025-02-15] MEDS ORDERED: TYLENOL 325 MG ONE (20:28)
[2025-02-15] MEDS ORDERED: Compazine 10 MG/2 ML ONE (20:28)
[2025-02-15] MEDS: TORAdol 30 mg Injection IV ONE (20:29)
[2025-02-15] MEDS: Compazine 10 MG/2 ML IV ONE (20:29)
[2025-02-15] MEDS: TYLENOL 325 MG PO ONE (20:30)
[2025-02-15 20:32] VITALS: TEMP 97.9
--- NOTE | 2025-02-15 21:17 | ERPHSYRPT ---
- History of Present Illness Time Seen by Provider: 02/15/25 20:30 Source: patient Exam Limitations: no limitations Patient Subjective Stated Complaint: c/o migraine Triage Nursing Assessment: patient brought to ED by with c/o migraine. patient stated that she has had this migraine for the past 2 days, rated pain 10/10 yesterday, but states it is an 8/10 upon arrival. PERRLA present, skin w/n/d, afebrile, gait steady, denies head trauma, has a hx of migraines, doesn't appear to be in any distress at this time. Physician History: Patient is a 44-year-old female history of migraine headaches, asthma, bronchit is, type 2 diabetes, GERD, anxiety and bipolar presents to our ED for evaluation of a migraine headache. However patient states this is unusual and that today's migraine is at the left side of her head when her previous migraines were at the right side of her head. No trauma no fever no neck pain no photophobia. No meningeal signs. Headache has been ongoing for approximately 2 days. Patient r ates her pain 8 out of 10 however she is conversant and in no acute distress. at bedside. They voiced no other complaints or concerns at this time. Portions of this note were created with voice recognition technology. There may be grammatical, spelling, punctuation or sound alike errors Timing/Duration: day(s) (2 days) Quality: aching Head Pain Location: temporal (Left temporal frontal) Severity of Pain-Max: moderate Severity of Pain-Current: mild Recent Head Trauma: no recent headache/trauma Modifying Factors: Improves With: exposure to light, noise Associated Symptoms: denies symptoms Previous symptoms: other (Headache similar but not identical) Allergies/Adverse Reactions: cefaclor [From Ceclor] Allergy (Verified 02/15/25 20:15) Hives shrimp Allergy (Verified 02/15/25 20:15) Swelling Gadolinium-Containing Contrast Medi Adverse Reaction (Intermediate, Verified 02/15/25 20:15) Rash Iodinated Contrast Media Adverse Reaction (Intermediate, Verified 02/15/25 20:15) Rash Home Medications: Metformin HCl 500 mg [Glucophage 500 MG] 1,000 tab PO BID 08/26/20 [History] Citalopram Hydrobromide [Celexa] 10 mg PO DAILY 02/15/25 [History] Cranberry 500 mg PO DAILY 02/15/25 [History] Levothyroxine Sodium 25 mcg PO DAILY 02/15/25 [History] [place] Carbonate [Farnsworth Carbonate ER] 450 mg PO Q12H 02/15/25 [History] Metoprolol Succinate [Toprol Xl] 100 mg PO DAILY 02/15/25 [History] Multivitamin [Multi-Vitamin Daily] 1 tab PO DAILY 02/15/25 [History] Norethindrone [Jencycla] 0.35 mg PO DAILY 02/15/25 [History] Valsartan 40 mg PO DAILY 02/15/25 [History] Hx Tetanus, Diphtheria Vaccination/Date Given: Yes Hx Influenza Vaccination/Date Given: No Hx Pneumococcal Vaccination/Date Given: No Travel Risk - International Travel Have you traveled outside of the country in past 3 weeks: No - Emerging Infectious Disease Are you exhibiting symptoms associated with any current EIDs: Yes Symptoms: Headaches/Body Aches/ - Review of Systems All Other Systems: Reviewed and Negative - Past Medical History Pertinent Past Medical History: Yes Neurological History: Migraines ENT History: No Pertinent History Cardiac History: No Pertinent History Respiratory History: Asthma, Bronchitis Endocrine Medical History: Diabetes Type II Musculoskeletal History: No Pertinent History GI Medical History: GERD History: No Pertinent History Psycho-Social History: Anxiety, Bipolar Female Reproductive Disorders: No Pertinent History - Past Surgical History Past Surgical History: Yes Other Surgical History: gums - Female History Hx Last Menstrual Period: last week Hx Now: No - Social History Smoking Status: Never smoker Exposure to second hand smoke: No Drug Use: none - Social Determinants of Health Will the patient participate in the screening: Yes Do you worry about a steady place to live?: No Do you have any problems with any of the following?: No known problems In the past 12 months,have you had to go without utilities?: No Transportation Issues: No Has anyone in your support network made you feel unsafe?: No Have you or anyone in your house had to go w/o enough food: No - Nursing Vital Signs Nursing Vital Signs: Initial Vital Signs O2 Sat by Pulse Oximetry 99 02/15/25 20:18 Pain Scale Pain Intensity 3 - Physical Exam General Appearance: no apparent distress Eye Exam: PERRL/EOMI Ears, Nose, Throat Exam: normal ENT inspection, moist mucous membranes Neck Exam: normal inspection, supple, full range of motion, No meningismus Respiratory Exam: normal breath sounds, lungs clear, airway intact Cardiovascular Exam: regular rate/rhythm, normal heart sounds Gastrointestinal/Abdominal Exam: soft, No tenderness, No distention Back Exam: normal inspection, normal range of motion Mental Status Exam: alert, oriented x 3, 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 Mucous retention cyst.) Ordered Tests: Active Orders 24 hr Category Date Time Status IV Insertion STAT Care 02/15/25 20:17 Completed Pulse Oximetry (ED) STAT Care 02/15/25 20:17 Completed HEAD WITHOUT CONTRAST [CT] Stat Exams 02/15/25 20:17 Completed UA W/RFX UR CULTURE Stat Lab 02/15/25 22:26 Completed Medication Summary Discontinued Medications Generic Name Dose Route Start Last Admin Trade Name Freq PRN Reason Stop Dose Admin Acetaminophen 975 mg 02/15/25 20:17 02/15/25 20:30 Acetaminophen 325 Mg Tablet PO 02/15/25 20:18 975 mg STAT ONE Administration Acetaminophen Confirm 02/15/25 20:28 Acetaminophen 325 Mg Tablet Administered 02/15/25 20:29 Dose 975 mg .ROUTE .STK-MED ONE Sodium Chloride 1,000 mls @ 100 mls/hr 02/15/25 20:30 02/15/25 20:29 Sodium Chloride 0.9% 1000 Ml IV 03/17/25 20:29 100 mls/hr .Q10H MARYSOL Administration Sodium Chloride Confirm 02/15/25 20:28 Sodium Chloride 0.9% 1000 Ml Administered 02/15/25 20:29 Dose 1,000 mls @ ud .ROUTE .STK-MED ONE Ketorolac Tromethamine 30 mg 02/15/25 20:17 02/15/25 20:29 Ketorolac Tromethamine 30 Mg/Ml Inj IV 02/15/25 20:18 30 mg STAT ONE Administration Ketorolac Tromethamine Confirm 02/15/25 20:27 Ketorolac Tromethamine 30 Mg/Ml Inj Administered 02/15/25 20:28 Dose 30 mg .ROUTE .STK-MED ONE Prochlorperazine Edisylate 10 mg 02/15/25 20:17 02/15/25 20:29 Prochlorperazine Edisylate 10 Mg/2 Ml Vial IV 02/15/25 20:18 10 mg STAT ONE Administration Prochlorperazine Edisylate Confirm 02/15/25 20:28 Prochlorperazine Edisylate 10 Mg/2 Ml Vial Administered 02/15/25 20:29 Dose 10 mg .ROUTE .STK-MED ONE Valsartan 40 mg 02/16/25 10:00 02/15/25 23:44 Valsartan 80 Mg Tablet PO 03/18/25 09:59 40 mg DAILY MARYSOL Administration Valsartan Confirm 02/15/25 23:38 Valsartan 80 Mg Tablet Administered 02/15/25 23:39 Dose 80 mg .ROUTE .STK-MED ONE Lab/Rad Data: Laboratory Results 02/15/25 Range/Units 22:26 Urine Color Yellow (Yellow) Urine Appearance Clear (Clear) Urine pH 5.5 (4.6-8.0) Ur Specific [place] 1.020 (1.005-1.030) Urine Protein Negative (Negative) Urine Glucose (UA) Negative (Negative) mg/dL Urine Ketones >=160 A (Negative) Urine Blood Negative (Negative) Urine Nitrite Negative (Negative) Urine Bilirubin Negative (Negative) Urine Urobilinogen 1.0 A (0.2) mg/dL Ur Leukocyte Esterase Negative (Negative) U Hyaline Cast (Auto) NONE SEEN (0-2) /LPF Urine Microscopic RBC 0-2 (0-5) /HPF Urine Microscopic WBC 0-2 (0-5) /HPF Ur Epithelial Cells Rare (None Seen) /HPF Urine Bacteria None Seen (None Seen) /HPF Urine Culture Reflexed NO (NO) - Progress Progress: improved Air Movement: good Progress Note: Patient is a 44-year-old female history of migraine headaches, asthma, bronchitis, type 2 diabetes, GERD, anxiety and bipolar presents to our ED for evaluation of a migraine headache. Physical exam essentially nonremarkable. Patient reports that the headache was somewhat unusual with regard to its laterality. CT head negative for acute intracranial pathology. Mucous retention cyst observed. Patient had not taken her blood pressure medication in 2 days. Patient felt much better after treatment. Her blood pressure was observed to be 170s systolic. We administered 40 mg of valsartan as per her usual. Blood pressure improved to the 160s. Patient states her headache significantly improved from 8 to 2-3. Patient states she is ready for discharge. at bedside. They voiced no other complaints or concerns at this time. History obtained from patient and her . Differential diagnosis includes migraine, mass, intracranial bleed Complexity of problems addressed is moderate acute complicated. No critical care time. Complexity of data reviewed and analyzed is moderate. Test ordered test reviewed results analyzed and correlated clinically with history and physical exam. Risk of complication and or risk of morbidity/mortality of patient management is low. Vital stable. Time spent to discharge patient is approximately 15 minutes. Plan of care established for shared decision making. No social determinants of health present to impede follow-up. Portions of this note were created with voice recognition technology. There may be grammatical, spelling, punctuation or sound alike errors 02/16/25 00:13 Blood Culture(s) Obtained: No Antibiotics given: No Counseled pt/family regarding: diagnosis, need for follow-up, rad results - Departure Departure Disposition: Home Clinical Impression: Migraine headache, Mucous retention cyst, Hypertension Condition: Stable Critical Care Time: No Referrals: MARIE MILTON DO [Primary Care Provider, [facility]] - Follow up/PCP as directed Instructions: Headache, Adult (DC)
--- NOTE | 2025-02-15 21:42 | XRAY ---
CLINICAL HISTORY: headache COMPARISON: Prior CT dated 08/12/2020. TECHNIQUE: Axial non-contrast CT scan of the brain was performed from the skull base to the high parietal region. One of the following dose reduction techniques was utilized for this exam: Automated exposure control, adjustment of the mA and/or kV according to patient size, and use of iterative reconstruction. CTDI: 53.92 mGy, DLP: 1016.25 mGy-cm. FINDINGS: Brain Parenchyma: There is no evidence of acute intraparenchymal hemorrhage, established territorial infarct, or mass effect. There is normal attenuation of the cerebral hemispheres, cerebellum, and brainstem. There are no abnormal areas of hypoattenuation or hyperattenuation. Ventricular System: The ventricles are normal in size and configuration. There is no evidence of hydrocephalus or ventricular enlargement. Subarachnoid Spaces: The cortical sulci and basal cisterns are within normal limits. There is no evidence of subarachnoid hemorrhage or extra-axial fluid collections. There is no significant change in the mild calcifications along the cerebral falx. Cerebellum and Brainstem: No masses, lesions, or areas of abnormal density are identified. Orbits: There is normal appearance of the globes, optic nerves, and extraocular muscles. There is no evidence of orbital masses or abnormal density. Sinuses: There is interval increase in the sizes of the convex mucosal densities in both maxillary sinuses, more in the right, measuring up to 1.3 cm in width, likely mucous retention cysts. The rest of the paranasal sinuses are clear. Mastoid Air Cells: The mastoid air cells are clear. There is no evidence of mastoiditis. Skull: The skull morphology is normal with no evidence of fracture. IMPRESSION: 1. No evidence of acute intracranial hemorrhage, established territorial infarct, or cranial vault fracture. 2. Mucous retention cysts in both maxillary sinuses, with slight progression in comparison with the previous study. 3. No other significant interval changes. Electronically Signed by: Dwight Arellano MD. (02/15/2025 21:41:06 EDT)
[2025-02-15 23:11] LABS: Glucose, Urine Negative (Negative); Protein,Urine Dip Negative (Negative); RBC 0-2 /HPF (0-5); WBC 0-2 /HPF (0-5)
[2025-02-15] MEDS ORDERED: DIOVAN 80 MG ONE (23:38)
[2025-02-15] MEDS: DIOVAN 80 MG PO SCH (23:44)
[2025-02-16 00:02] VITALS: BP 159/74; PULSE 84; RESP 17
[2025-02-16 00:21] VITALS: O2SAT 98
== END 2025-02-16 00:02 | disposition home or self-care (01) ==
LOC: ED 20:07
DX: G43.909 Migraine, unspecified, not intractable, without status migrainosus (principal); J34.1 Cyst and mucocele of nose and nasal sinus; I10 Essential (primary) hypertension; E11.9 Type 2 diabetes mellitus without complications; Z79.84 Long term (current) use of oral hypoglycemic drugs; Z79.899 Other long term (current) drug therapy